=== PATIENT | female | born 1990 ===

== ENCOUNTER 2023-11-28 09:09 | Emergency (ER) | payer OTHER, SELFPAY ==
--- NOTE | ~2023-11-28 | US_ITS ---
EXAMINATION: US PELVIS CLINICAL INFORMATION: Question left adnexal mass on recent CT; the last menstrual period was on 11/09/2023. COMPARISON: CT abdomen and pelvis dated 11/28/2023. TECHNIQUE: Ultrasound of the pelvis is performed using both transabdominal and transvaginal transducers along with Doppler. Transvaginal imaging is performed due to inadequate visualization transabdominally. FINDINGS: Uterus: The uterus is anteverted. The uterus measures 8.6 x 3.8 x 5.0 cm. Nabothian cysts are seen within the cervix. The double wall endometrial thickness is 10 mm. The uterus is smooth in contour and has normal myometrial echogenicity. No visible fibroid. Adnexa: Both ovaries are visualized. There is normal color flow to the adnexa. There is no ovarian torsion. There is a small amount of free fluid in the cul-de-sac. Right ovary measures 3.7 x 2.5 x 1.8 cm, volume 8.7 mL. Left ovary measures 4.4 x 2.9 x 3.3 cm, volume 22.7 mL. The left ovary contains a 4.0 x 3.1 x 3.1 cm complex cyst with septations, the largest measuring 3 mm. No focal nodule or associated color Doppler flow is seen. US/US pelvic and transvaginal IMPRESSION: 1. A 4.0 cm complex left ovarian cyst is seen, with septations, the largest measuring 3 mm. Gynecologic evaluation and management is recommended. 2. Nabothian cysts are seen within the cervix. 3. There is a small amount nonspecific free fluid in the cul-de-sac.
--- NOTE | ~2023-11-28 | CT_ITS ---
EXAMINATION: CT abdomen pelvis wo IV con CLINICAL INFORMATION: Reason for Exam CVAT, +UTI despite antibiotics, eval for pyelo COMPARISON: No prior CT available TECHNIQUE: Multidetector volumetric imaging was performed from the superior aspect of the liver through the pubic symphysis , noncontrast CT Sagittal and coronal reformatted images were obtained on the technologist's workstation. This CT examination was performed using dose optimization techniques as appropriate, variously including the following: *Automated exposure control *Adjustment of mA and/or kV according to patient size (this includes techniques or standardized protocols for targeted exams where dose is matched to indication/reason for exam; i.e. extremities or head) *Use of iterative reconstruction technique DLP: 408 mGy-cm FINDINGS: LOWER THORAX: Included lung bases are clear. HEPATOBILIARY: No focal hepatic lesions. No biliary ductal dilatation. GALLBLADDER: Gallbladder unremarkable. SPLEEN: Spleen is normal in size. PANCREAS: No focal mass or ductal dilatation. 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 There is no bowel distention or thickening. No CT evidence of appendicitis. ADRENALS: No adrenal nodules. KIDNEYS/URETERS: There is nonobstructing 5 mm stone middle calyx left kidney. There is mild left hydronephrosis. No obstructing stone found along the course of the left ureter. Perinephric fat are clear. Evaluation of the kidneys for pyelonephritis is limited due to lack of contrast however no definitive renal abscess found. URINARY BLADDER: Urinary bladder is decompressed unopacified limited evaluation. PELVIC VISCERA: Left adnexal heterogeneous complex solid and cystic structure 4.2 x 3.4 cm, most likely of left ovarian origin, limited evaluation on this CT scan. PERITONEUM: No free air or fluid. LYMPH NODES: No lymphadenopathy. VASCULAR:Abdominal aorta normal in size, no aneurysm found. BONES, ABDOMINAL WALL AND SOFT TISSUES: Age-appropriate changes of the spine and skeletal system, no destructive osteolytic or osteosclerotic bone lesion found CT/CT abdomen pelvis wo IV con IMPRESSION: 1. Mild left hydronephrosis, no obstructing stone found along the course of the left ureter. Evaluation of the kidneys for pyelonephritis is limited due to lack of contrast however no definitive renal abscess found. 2. There is 5 mm nonobstructing stone middle calyx left kidney. 3. Complex solid and cystic structure in the left adnexa 4.2 cm, limited evaluation on this noncontrast CT scan, consider correlation with follow-up pelvic ultrasound. 4. 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
[2023-11-28 09:12] VITALS: BP 138/87; PULSE 83; RESP 17; TEMP 36.6; O2SAT 100; BMI 24.5
--- NOTE | 2023-11-28 09:56 | ED.FEMALEGU ---
HPI - Female Genitourinary General Chief complaint: Urogenital-Female Stated complaint: UTI? Time Seen by Provider: 11/28/23 09:24 Source: patient Mode of arrival: ambulatory Limitations: no limitations History of Present Illness HPI Narrative: 33-year-old female with a history of frequent UTIs, gastric sleeve (Dr Melissa Coronado 2022) here with complaints of urinary urgency, frequency, lower back pain, chills, nausea x several days. Most recent UTI was 2 weeks ago. Patient reports she completed a course of antibiotics but can not recall the name. She denies any vomiting, abdominal pain, vaginal discharge, hematuria. LMP 3 weeks ago. Patient reports she is sexually active. She has not currently on any contraception. She is not concern for STDs but would like to be tested while she is here today Related Data Previous Rx's ?Medication ?Instructions ?Recorded ciprofloxacin HCl 500 mg tablet 500 mg PO BID #14 tabs 11/28/23 ondansetron 4 mg disintegrating 4 mg PO Q6H PRN nausea and 11/28/23 tablet vomiting #15 tabs phenazopyridine 200 mg tablet 200 mg PO TID PRN pain 6 doses #6 11/28/23 (Pyridium) tabs Allergies Allergy/AdvReac Type Severity Reaction Status Date / Time tioconazole Allergy Hives Verified 11/28/23 09:15 [From Monistat 1 (tioconazole)] Review of Systems Review of Systems: Yes all other systems are reviewed and are negative Constitutional: Constitutional: Reports no additional constitutional complaints, Denies body ache(s), Denies chills, Denies fever(s), Denies headache(s) and Denies weakness Eyes: Eyes: Reports no additional eye complaints and Denies change in vision ENT: Reports system reviewed and no additional complaints, except as documented, Denies dizziness, Denies headache(s), Denies nasal congestion, Denies nasal discharge and Denies neck pain Cardiovascular: Cardiovascular: Reports no additional cardiovascular complaints, Denies chest pain, Denies leg edema and Denies dyspnea Respiratory: Respiratory: Reports no additional respiratory complaints, Denies cough and Denies dyspnea Gastrointestinal: Gastrointestinal: Reports no additional gastrointestinal complaints, Denies abdominal pain, Denies diarrhea, Denies nausea and Denies vomiting Genitourinary: Genitourinary: Reports no additional female genitourinary complaints, Denies hematuria, Reports dysuria, Denies flank pain, Denies urinary incontinence, Denies urinary hesitancy, Reports urinary urgency and Denies vaginal discharge Musculoskeletal: Musculoskeletal: Reports no additional musculoskeletal complaints, Reports back pain, Denies arthralgias, Denies joint swelling, Denies neck pain, Denies numbness and Denies tingling Integumentary/Breasts: Skin/Breast: Reports system reviewed and no additional complaints, except as docu and Denies rash Neurologic: Reports system reviewed and no additional complaints, except as documented, Denies Abnormal speech present, Denies dizziness, Denies headache(s), Denies numbness, Denies tingling and Denies weakness PMFSH Past Medical History Attestation statement: The following information was validated with the patient. Source: old records reviewed and nursing notes reviewed Social History Social History Advance Directives: No Advance Directives Information Provided: No Physical Exam Vital Signs: Vital Signs: Last Vital Signs Temp 99.4 F 11/28/23 15:21 Pulse 80 11/28/23 15:21 Resp 16 11/28/23 15:21 BP 110/68 11/28/23 15:21 Pulse Ox 97 11/28/23 15:21 O2 Del Method Room Air 11/28/23 15:21 BMI result Body Mass Index 24.5 Const: General: cooperative, healthy appearing, comfortable and no acute distress Orientation/consciousness: patient oriented x3 Limitations: no limitations HEENT: Head: Yes normal to inspection Ears: hearing grossly normal bilaterally General nose exam: Normal external nose present Face and sinus: Yes normal facial exam Mouth: Normal oral and palatal mucosa present Throat: Yes posterior oropharynx normal Eyes: General: appearance normal, both eyes and all related structures Pupils: Equal, round and reactive pupils present Neck: Neck: Yes normal visual inspection Chest: Chest palpation & inspection: normal inspection of the chest Resp: Effort & Inspection: normal respiratory effort Auscultation: clear to auscultation bilaterally Cardio: Rate: regular rate Rhythm: regular rhythm Peripheral pulses: Peripheral pulses 2+ throughout GI: Inspection: Yes normal to inspection Palpation (GI): Soft to palpation and nontender Auscultation: normal bowel sounds : General: Yes CVA tenderness bilateral Back/Spine/Pelvis: Back: CVA tenderness Thoracic/Lumbar Spine: thoracic and lumbar spine normal to inspection Skin: General skin exam: no rashes or lesions noted Neuro: General: patient oriented x3, no focal motor deficits and normal sensation to monofilament Cranial nerves: Yes Equal, round and reactive pupils present Cognition (Neuro): normal cognition Speech: No Abnormal speech present Gait exam (Neuro): Normal gait present Motor exam (neuro): 5/5 motor strength present throughout Extrem: General: Yes normal to inspection Course Course Course Narrative: CT shows MPRESSION: 1. Mild left hydronephrosis, no obstructing stone found along the course of the left ureter. Evaluation of the kidneys for pyelonephritis is limited due to lack of contrast however no definitive renal abscess found. 2. There is 5 mm nonobstructing stone middle calyx left kidney. 3. Complex solid and cystic structure in the left adnexa 4.2 cm, limited evaluation on this noncontrast CT scan, consider correlation with follow-up pelvic ultrasound. 4. 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 Labs unremarkable. UA is consistent with UTI. Clinically patient has pyelonephritis. Will order pelvic ultrasound based on above recommendations. Medications Administered Discontinued Medications Generic Name Dose Route Start Last Admin Trade Name Freq PRN Reason Stop Dose Admin Ondansetron HCl 4 mg 11/28/23 12:02 11/28/23 12:06 Ondansetron Odt 4 Mg Tab.Rapdis TRANSLINGU 11/28/23 12:03 4 mg ONCE ONE Administration Medical Decision Making Medical Decision Making [facility] Narrative: 33-year-old female with a history of frequent UTIs, gastric sleeve (Dr Melissa Coronado 2022) here with complaints of urinary urgency, frequency, lower back pain, chills, nausea x several days.? Most recent UTI was 2 weeks ago.? Patient reports she completed a course of antibiotics but can not recall the name.? She denies any vomiting, abdominal pain, vaginal discharge, hematuria. LMP 3 weeks ago.? Patient reports she is sexually active.? She has not currently on any contraception.? She is not concern for STDs but would like to be tested while she is here today No focal abdominal pain. Bilateral CVAT Will obtain labs, UA, ur preg, CT NG, CT A/P Differential Diagnosis Differential Diagnoses: The differential diagnosis associated with the presentation includes UTI, pyelonephritis, renal colic, STI Admission/Observation Consideration of admission/observation: Escalation of care including admission/observation considered Clinically patient has pyelonephritis with no fever, she is nontoxic appearing, pain is controlled, tolerating p.o.. She will be discharged home with oral antibiotics Lab Data MDM Lab Attestation statement: I reviewed the patient's lab results. 11/28/23 10:17 11/28/23 10:17 Labs: Lab Results 11/28/23 11/28/23 Range/Units 10:17 10:24 WBC 6.4 (4.8-10.8) X10*3/uL RBC 3.75 L (4.20-5.50) X10*6/uL Hgb 11.9 L (12.0-16.0) g/dl Hct 34.0 L (37.0-47.0) % MCV 90.7 (80.0-98.0) fL MCH 31.7 (27.0-33.0) pg MCHC 35.0 (31.0-35.0) g/dl RDW 12.9 (11.0-16.0) % Plt Count 247 (160-400) X10*3/uL MPV 10.2 (9.4-12.3) fL Immature Gran % (Auto) 0.3 (0.0-0.4) % Neut % (Auto) 64.6 (45-73) % Lymph % (Auto) 28.5 (20-40) % Mitchell % (Auto) 5.3 (2-11) % Eos % (Auto) 0.8 (0-4) % Baso % (Auto) 0.5 (0-2) % Lymph # (Auto) 1.8 (1.2-4.9) X10*3/uL Mitchell # (Auto) 0.3 (0.1-1.2) X10*3/uL Eos # (Auto) 0.1 (0.0-0.4) X10*3/uL Baso # (Auto) 0.0 (0.0-0.2) X10*3/uL Abs Immat Gran (auto) 0.02 (0.00-0.03) X10*3/uL Absolute Neuts (auto) 4.1 (2.0-8.3) x10*3/uL Absolute Nucleated RBC 0.000 (0.0-0.012) X10*3/uL Nucleated RBC % (auto) 0.0 (0.0-0.2) /100WBC Sodium 140 (135-145) mmol/L Potassium 3.9 (3.3-5.1) mmol/L Chloride 107 (96-108) mmol/L Carbon Dioxide 26 (22-29) mmol/L Anion Gap 11 L (12-20) BUN 12 (9-16) mg/dL Creatinine 0.76 (0.5-1.4) mg/dL Estim Creat Clear Calc 91.2 Estimated GFR > 60 Random Glucose 79 (60-115) mg/dL Calcium 9.4 (8.4-10.2) mg/dL Total Bilirubin 0.4 (0.0-1.0) mg/dL Direct Bilirubin 0.1 (0.0-0.5) mg/dL AST 13 (5-31) U/L ALT 11 (0-31) U/L Alkaline Phosphatase 62 (39-117) U/L Total Protein 7.2 (6.5-8.0) g/dL Albumin 4.2 (3.5-5.0) g/dL Lipase 18 (8-78) U/L Urine Color Yellow Urine Appearance Turbid Urine pH 6.5 (5.0-9.0) Ur Specific [place] 1.020 (1.005-1.025) Urine Protein 30 (1+) H (Neg-Trace) mg/dL Urine Glucose (UA) Negative (Negative) mg/dL Urine Ketones Negative (Negative) mg/dL Urine Blood Moderate (2+) H (Negative) Urine Nitrite Negative (Negative) Ur Leukocyte Esterase Large (3+) H (Negative) Urine RBC >20 H (0-2) /HPF Urine WBC >50 H (0-5) /HPF Ur Squamous Epith Cells >20 (0-2) /HPF Urine Bacteria 3+ (None Seen) Hyaline Casts 0-2 (0-2) /LPF Urine Test NEGATIVE (NEGATIVE) Chlam trachomat DNA PCR NOT DETECTED (Not Detect.) N.gonorrhoeae DNA (PCR) NOT DETECTED (Not Detect.) Independent Interpretation I performed an independent interpretation of an: Ultrasound and CT Scan Interpretation: I independently reviewed the CT scan/US agree with the radiology report Radiology Impression Discussion of test interpretation with radiology: I have reviewed the radiologist's reading. Radiologist Impression: Launch?Image [address] [address] [address] Scan Report Signed Patient: Kemi Reed MR#: [id number] : 1990 Acct:[id number] Age/Sex: 33 / F ADM Date: 11/28/23 Loc: HO.ED Attending Dr: Ordering Physician: Za Mercado NP Date of Service: 11/28/23 Procedure(s): CT abdomen pelvis wo IV con Accession Number(s): [id number] cc: Physician,None ; Za Mercado NP~ EXAMINATION: CT abdomen pelvis wo IV con CLINICAL INFORMATION: Reason for Exam CVAT, +UTI despite antibiotics, eval for pyelo COMPARISON: No prior CT available TECHNIQUE: Multidetector volumetric imaging was performed from the superior aspect of the liver through the pubic symphysis , noncontrast CT Sagittal and coronal reformatted images were obtained on the technologist's workstation. This CT examination was performed using dose optimization techniques as appropriate, variously including the following: *Automated exposure control *Adjustment of mA and/or kV according to patient size (this includes techniques or standardized protocols for targeted exams where dose is matched to indication/reason for exam; i.e. extremities or head) *Use of iterative reconstruction technique DLP: 408 mGy-cm FINDINGS: LOWER THORAX: Included lung bases are clear. HEPATOBILIARY: No focal hepatic lesions. No biliary ductal dilatation. GALLBLADDER: Gallbladder unremarkable. SPLEEN: Spleen is normal in size. PANCREAS: No focal mass or ductal dilatation. 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 There is no bowel distention or thickening. No CT evidence of appendicitis. ADRENALS: No adrenal nodules. KIDNEYS/URETERS: There is nonobstructing 5 mm stone middle calyx left kidney. There is mild left hydronephrosis. No obstructing stone found along the course of the left ureter. Perinephric fat are clear. Evaluation of the kidneys for pyelonephritis is limited due to lack of contrast however no definitive renal abscess found. URINARY BLADDER: Urinary bladder is decompressed unopacified limited evaluation. PELVIC VISCERA: Left adnexal heterogeneous complex solid and cystic structure 4.2 x 3.4 cm, most likely of left ovarian origin, limited evaluation on this CT scan. PERITONEUM: No free air or fluid. LYMPH NODES: No lymphadenopathy. VASCULAR:Abdominal aorta normal in size, no aneurysm found. BONES, ABDOMINAL WALL AND SOFT TISSUES: Age-appropriate changes of the spine and skeletal system, no destructive osteolytic or osteosclerotic bone lesion found CT/CT abdomen pelvis wo IV con IMPRESSION: 1. Mild left hydronephrosis, no obstructing stone found along the course of the left ureter. Evaluation of the kidneys for pyelonephritis is limited due to lack of contrast however no definitive renal abscess found. 2. There is 5 mm nonobstructing stone middle calyx left kidney. 3. Complex solid and cystic structure in the left adnexa 4.2 cm, limited evaluation on this noncontrast CT scan, consider correlation with follow-up pelvic ultrasound. 4. 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 [place] [address] Ultrasound Report Signed Patient: Kemi Reed MR#: [id number] : 1990 Acct:[id number] Age/Sex: 33 / F ADM Date: 11/28/23 Loc: .ED Attending Dr: Ordering Physician: Za Mercado NP Date of Service: 11/28/23 Procedure(s): US pelvic and transvaginal Accession Number(s): [id number] cc: Physician,None ; Za Mercado NP~ EXAMINATION: US PELVIS CLINICAL INFORMATION: Question left adnexal mass on recent CT; the last menstrual period was on 11/09/2023. COMPARISON: CT abdomen and pelvis dated 11/28/2023. TECHNIQUE: Ultrasound of the pelvis is performed using both transabdominal and transvaginal transducers along with Doppler. Transvaginal imaging is performed due to inadequate visualization transabdominally. FINDINGS: Uterus: The uterus is anteverted. The uterus measures 8.6 x 3.8 x 5.0 cm. Nabothian cysts are seen within the cervix. The double wall endometrial thickness is 10 mm. The uterus is smooth in contour and has normal myometrial echogenicity. No visible fibroid. Adnexa: Both ovaries are visualized. There is normal color flow to the adnexa. There is no ovarian torsion. There is a small amount of free fluid in the cul-de-sac. Right ovary measures 3.7 x 2.5 x 1.8 cm, volume 8.7 mL. Left ovary measures 4.4 x 2.9 x 3.3 cm, volume 22.7 mL. The left ovary contains a 4.0 x 3.1 x 3.1 cm complex cyst with septations, the largest measuring 3 mm. No focal nodule or associated color Doppler flow is seen. US/US pelvic and transvaginal IMPRESSION: 1. A 4.0 cm complex left ovarian cyst is seen, with septations, the largest measuring 3 mm. Gynecologic evaluation and management is recommended. 2. Nabothian cysts are seen within the cervix. 3. There is a small amount nonspecific free fluid in the cul-de-sac. Prescription Management I considered prescription management with: Antibiotic Discharge Plan Discharge Clinical Impression: Pyelonephritis, Ovarian cyst Patient Disposition: Home, Self-Care Instructions: Ovarian Cyst (ED), Kidney Infection (ED) Additional Instructions: Your CT scan shows no kidney stones or large areas of infection but clinically you do have a kidney infection and so we are going to treat you with an antibiotic. We will also prescribing you pain medication and nausea medicine as needed. Your ultrasound shows a left ovarian cyst. We do recommend that you follow up outpatient with gynecology. Please return for any severe pain, vomiting, fever, vaginal discharge Prescriptions: New phenazopyridine [Pyridium] 200 mg tablet 200 mg PO TID PRN (Reason: pain) Qty: 6 0RF ciprofloxacin HCl 500 mg tablet 500 mg PO BID Qty: 14 0RF ondansetron 4 mg tablet,disintegrating 4 mg PO Q6H PRN (Reason: nausea and vomiting) Qty: 15 0RF Referrals: Physician,None [Primary Care Provider] - 1 week Print Language: Jamaican
[2023-11-28 10:28] VITALS: BP 113/64; PULSE 59; RESP 20; TEMP 36.9; O2SAT 100
[2023-11-28 10:35] LABS: MANUAL DIFF FLAG NO
[2023-11-28 10:36] LABS: Basophils Percent Auto 0.5 % (0-2); Eosinophils Absolute Auto 0.1 X10*3/uL (0.0-0.4); Eosinophils Percent Auto 0.8 % (0-4); Hemoglobin 11.9 g/dl (12.0-16.0); Imm Gran Abs Auto 0.02 X10*3/uL (0.00-0.03); Imm Gran Pct Auto 0.3 % (0.0-0.4); Lymphocytes Absolute Auto 1.8 X10*3/uL (1.2-4.9); Lymphocytes Percent Auto 28.5 % (20-40); Mean Corpuscular Hemoglobin 31.7 pg (27.0-33.0); Mean Corpuscular Volume 90.7 fL (80.0-98.0); Mean Platelet Volume 10.2 fL (9.4-12.3); Monocytes Absolute Auto 0.3 X10*3/uL (0.1-1.2); Monocytes Percent Auto 5.3 % (2-11); Neutrophils Absolute Auto 4.1 x10*3/uL (2.0-8.3); Neutrophils Percent Auto 64.6 % (45-73); Platelet Count 247 X10*3/uL (160-400); Red Blood Count 3.75 X10*6/uL (4.20-5.50); Red Cell Distribution Width 12.9 % (11.0-16.0); White Blood Count 6.4 X10*3/uL (4.8-10.8)
[2023-11-28 10:38] LABS: Appearance Urine Turbid; Color Urine Yellow; Glucose Urine UA Negative (Negative); Leukocyte Esterase Urine Large (3+) (Negative); Nitrite Urine Negative (Negative); PH 6.5 (5.0-9.0); UMIC TRIGGER UACC YES; Urine Blood Moderate (2+) (Negative); Urine Ketones Negative (Negative); Urine Protein 30 (1+) mg/dL (Neg-Trace)
[2023-11-28 10:39] LABS: UPreg QC Valid YES; Urine Pregnancy NEGATIVE (NEGATIVE)
[2023-11-28 10:40] LABS: Bacteria Urine 3+ (None Seen); Hyaline Casts Urine 0-2 /LPF (0-2); RBC Urine >20 /HPF (0-2); Squamous Epithelial Cell Urine >20 /HPF (0-2); UACC Culture Trigger YES; WBC Urine >50 /HPF (0-5)
[2023-11-28 11:02] LABS: Alanine Aminotransferase 11 U/L (0-31); Albumin Level 4.2 g/dL (3.5-5.0); Alkaline Phosphatase 62 U/L (39-117); Anion Gap 11 (12-20); Aspartate Amino Transferase 13 U/L (5-31); Bilirubin Direct 0.1 mg/dL (0.0-0.5); Bilirubin Total 0.4 mg/dL (0.0-1.0); Blood Urea Nitrogen 12 mg/dL (9-16); Calcium 9.4 mg/dL (8.4-10.2); Carbon Dioxide 26 mmol/L (22-29); Chloride 107 mmol/L (96-108); Creatinine Clr Calc Pharmacy 91.2; Estimated Glomerular Filt Rate > 60; Glucose Random 79 mg/dL (60-115); Lipase 18 U/L (8-78); Potassium 3.9 mmol/L (3.3-5.1); Sodium 140 mmol/L (135-145); Total Protein 7.2 g/dL (6.5-8.0)
[2023-11-28 12:06] VITALS: BP 100/55; PULSE 67; RESP 18; TEMP 37.1; O2SAT 99
[2023-11-28] MEDS: Ondansetron ODT 4 MG TAB.RAPDIS TRANSLINGU (12:06)
[2023-11-28 12:13] LABS: CT PCR NOT DETECTED (Not Detect.); NG PCR NOT DETECTED (Not Detect.)
[2023-11-28 15:21] VITALS: BP 110/68; PULSE 80; RESP 16; TEMP 37.4; O2SAT 97
--- NOTE | 2023-11-28 15:21 | MHC.EDTECH ---
THISW PCT ASSUMED CARE OF PATIENT AT 1500 ,VITALS TAKEN,PT WATCHING TELEVISION ,WAITING FOR RESULTS ,CALL [facility] WITHIN PATIENT REACH .
[2023-11-28 16:15] VITALS: BP 104/64; PULSE 83; RESP 16; TEMP 36.9; O2SAT 98
== END 2023-11-28 16:16 | disposition home or self-care (01) ==
PROVIDERS: Nurse Practitioner Family; Emergency Provider Emergency Medicine
DX: N12 Tubulo-interstitial nephritis, not specified as acute or chronic (principal); N83.202 Unspecified ovarian cyst, left side; R35.0 Frequency of micturition; M54.50 Low back pain, unspecified; R10.2 Pelvic and perineal pain; Z79.899 Other long term (current) drug therapy; Z98.84 Bariatric surgery status
CPT/HCPCS: 0353U; 36415; 74176; 76830; 76856; 80048; 80076; 81001; 81025; 83690; 85025; 87086; 87088; 87186; 99284